=== PATIENT | male | born 1985 | race African-American/Black ===

== ENCOUNTER 2020-06-17 14:01 | Emergency (ER) | payer SELFPAY ==
[~2020-06-17] VITALS: Ht 170.2 cm; Wt 77.0 kg
[2020-06-17 14:05] VITALS: BP 111/68
== END 2020-06-17 14:54 | disposition home or self-care (01) ==
LOC: ER 14:01
DX: Z00.00 Encounter for general adult medical examination without abnormal findings (principal)
CPT/HCPCS: 99283